=== PATIENT | female | born 1985 | race Caucasian/White ===

== ENCOUNTER 2021-05-06 06:15 | Inpatient (IN) ==
[2021-05-06] MEDS: Acetaminophen 325 MG TABLET PO SCH ×3 (03:59→16:12)
[2021-05-06] MEDS: Ibuprofen 600 MG TABLET PO SCH ×3 (03:59→16:12)
[2021-05-06 04:56] LABS: Basophils % 0.1 %; Eosinophils % 0.2 %; Hematocrit 39.2 % (35.3-44.9); Hemoglobin 13.4 g/dL (11.5-15.4); Immature Granulocytes % 0.5 % (0-4); Lymphocytes # 1.1 K/mcL (0.6-4.6); Lymphocytes % 7.9 %; Mean Corpuscular HGB Conc 34.2 g/dL (31.6-35.5); Mean Corpuscular Hemoglobin 30.7 pg (28.0-33.3); Mean Corpuscular Volume 89.9 fL (83.0-100.0); Mean Platelet Volume 12.2 fL (9.4-12.4); Monocytes # 0.5 K/mcL (0.0-1.3); Monocytes % 3.4 %; Neutrophils # 12.5 K/mcL (1.6-8.9); Platelet Count 127 K/mcL (140-400); Red Blood Count 4.36 M/mcL (3.82-4.97); Red Cell Distribution Width 13.2 % (11.5-14.5); Segmented Neutrophils % 87.9 %; White Blood Count 14.2 K/mcL (4.3-11.1)
[~2021-05-06 06:15] MED LIST: *HR* Oxytocin 10 UNIT/ML VIAL IM ONE; Benzocaine/Menthol 56 GM AEROSOL SPRAY TP PRN; FLU Vac QV 21-22 (6Month+)/PF 0.5 ML SYRINGE IM ONE; Ibuprofen 600 MG TABLET PO PRN; Lanolin 7 G OINT...G. TP PRN; Lidocaine 1% 20 ML MDV ONE; Measles/Mumps/Rubella Vacc 0.5 ML VIAL SQ PRN; Ondansetron 4 MG/2 ML VIAL IVP PRN; Ondansetron ODT 4 MG TAB.RAPDIS SL PRN; Oxytocin 20 units/ LR 1000 mL 20 UNIT/1,000 ML BAG IVC SCH; Rho Immune Globulin 1,500 UNIT SYRINGE IM PRN
[2021-05-06] MEDS: Prenatal Vit/FA 1 EACH TABLET PO SCH (07:44)
[2021-05-06 21:51] VITALS: O2SAT 99
[2021-05-07] MEDS: Acetaminophen 325 MG TABLET PO SCH ×2 (00:25→12:19)
[2021-05-07] MEDS: Ibuprofen 600 MG TABLET PO SCH ×2 (00:25→12:18)
[2021-05-07 08:39] VITALS: BP 107/73; PULSE 76; TEMP 98.3
[2021-05-07] MEDS ORDERED: FLU Vac QV 21-22 (6Month+)/PF 0.5 ML SYRINGE IM ONE (12:11)
[2021-05-07] MEDS: Prenatal Vit/FA 1 EACH TABLET PO SCH (12:19)
== END 2021-05-07 13:00 | disposition home or self-care (01) | DRG 807 ==
LOC: 1NENULAB → 1NENUOBS 06:15
PROVIDERS: ADMIT Obstetrics & Gynecology; ATTEND Obstetrics & Gynecology